=== PATIENT | female | born 1965 | race Caucasian/White ===

== ENCOUNTER 2021-02-25 10:09 | Outpatient (CLI) | payer BC ==
[~2021-02-25] VITALS: Ht 160 cm; Wt 80.7 kg
[2021-02-25 10:13] VITALS: BP 167/85
[2021-02-25] MEDS ORDERED: CASIRIVIMAB/IMDEVIMAB 1,200 MG in NS (IVPB) 50 ML IV ONE (10:30)
[2021-02-25] MEDS ORDERED: ACETAMINOPHEN 500 MG TAB (TYLENOL) PO PRN (10:30)
[2021-02-25] MEDS ORDERED: ONDANSETRON 4 MG/2 ML (SDV) Z0FRAN IV PRN (10:30)
[2021-02-25] MEDS ORDERED: diphenhydrAMINE 50 MG/ML INJ (BENADRYL) IV PRN (10:30)
[2021-02-25] MEDS ORDERED: EPINEPHrine INJECTION 1 MG/ML AMP IM PRN (10:30)
[2021-02-25 11:27] VITALS: BP 159/88
== END 2021-02-25 11:28 ==
LOC: INFUSION 10:09
PROVIDERS: ATTEND Nurse Practitioner Family
DX: U07.1 COVID-19 (principal)

== ENCOUNTER → 2021-11-21 | Outpatient (CLI) | payer BC ==
--- NOTE | 2021-11-21 11:27 | Diagnostic Imaging Report ---
INDICATION: CHEST PAIN, SHORT OF BREATH COMPARISON: None FINDINGS: Frontal and lateral views of the chest demonstrate normal heart size and pulmonary vascularity. Evaluation lung castillo demonstrates a 9 mm micronodular opacity within the lateral margins of the lower left lung, only well visualized on the frontal view otherwise, lungs are clear. There are no signs of infiltrate, pleural effusions or pneumothoraces. The visualized osseous structures show no acute abnormalities. IMPRESSION: 1. No acute process. No signs of infiltrates, effusions or pneumothoraces. 2. Suspicious micronodular opacity on the left. Correlation with CT of the chest is advised. Dictated by: Dictated on workstation # [id number]
== END ==
LOC: RAD FS 10:08
PROVIDERS: ATTEND Nurse Practitioner Family
DX: R07.89 Other chest pain (principal); R06.02 Shortness of breath
CPT/HCPCS: 71046

== ENCOUNTER → 2021-12-09 | Outpatient (CLI) | payer BC ==
[~2021-12-09] MED LIST: CATHETER FLUSH 10 ML SYR IV PRN; HOLD METFORMIN - RECEIVED CONTRAST 20 ML VIAL IV SCH; IOHEXOL 350 MG/ML 100 ML (OMNIPAQUE 350) VIAL IV ONE; NS 100 ML (IVPB) BAG IV ONE
--- NOTE | 2021-12-09 17:36 | Diagnostic Imaging Report ---
PROCEDURE: CT chest with contrast only. TECHNIQUE: Multiple contiguous axial images were obtained through the chest after administration of intravenous contrast. Auto Exposure Controls were utilized during the CT exam to meet ALARA standards for radiation dose reduction. INDICATION: Pulmonary nodule. Correlation is made with prior chest radiograph from 11/21/2021. No axillary lymphadenopathy is detected. No mediastinal or hilar lymphadenopathy is seen. There are some calcified lymph nodes in the mediastinum and isabelle consistent with prior granulomatous exposure. No pericardial or pleural fluid is detected. There are several calcified nodules in both lungs consistent with granulomas. Nodule in the left lower lobe may account for the density noted on recent chest x-ray. No noncalcified pulmonary nodules or masses are identified. Upper abdomen is unremarkable. IMPRESSION: Prior granulomatous disease. No noncalcified pulmonary masses are detected. Dictated by: Dictated on workstation # [id number]
== END ==
LOC: RAD FS 14:24
PROVIDERS: ATTEND Nurse Practitioner Family
DX: R91.1 Solitary pulmonary nodule (principal); Z87.09 Personal history of other diseases of the respiratory system
CPT/HCPCS: 71260; Q9967